=== PATIENT | male | born 1950 | race Two or more races ===

== ENCOUNTER 2022-06-09 12:09 | Outpatient (CLI) | payer OTHER ==
[~2022-06-09 12:09] MED LIST: AMLODIPINE BESYL5 MG PO; ATACAND16 MG PO; CALTRATE 600 +1 EAC1 PO; LATANOPROST 0.7.5 ML OP
== END 2022-06-09 12:13 | disposition home or self-care (01) ==
LOC: SONOGRAMA 12:09
PROVIDERS: ATTEND Specialist
DX: R22.2 Localized swelling, mass and lump, trunk (principal); R22.31 Localized swelling, mass and lump, right upper limb

== ENCOUNTER 2022-06-12 05:11 | Day surgery (SDC) | payer OTHER ==
[~2022-06-12] VITALS: Ht 175.3 cm; Wt 95.3 kg
== END 2022-06-12 10:00 | disposition home or self-care (01) ==
LOC: CIR.AMB 05:11
PROVIDERS: ATTEND Specialist
DX: D17.1 Benign lipomatous neoplasm of skin and subcutaneous tissue of trunk (principal); D18.01 Hemangioma of skin and subcutaneous tissue; Z20.822 Contact with and (suspected) exposure to COVID-19; R22.2 Localized swelling, mass and lump, trunk; Z88.0 Allergy status to penicillin; I10 Essential (primary) hypertension; E78.5 Hyperlipidemia, unspecified; Z87.891 Personal history of nicotine dependence